=== PATIENT | female | born 1985 | race Caucasian/White ===

== ENCOUNTER → 2018-01-08 18:08 | Outpatient (REF) | payer OTHER, SELFPAY | LOC: LAB 18:08 | PROVIDERS: Visit Provider Otolaryngology | DX: J32.9 Chronic sinusitis, unspecified (principal); R51 Headache | CPT/HCPCS: 87070 ==

== ENCOUNTER → 2018-07-20 15:04 | Outpatient (REF) | payer OTHER, SELFPAY | LOC: LAB 15:04 | PROVIDERS: Visit Provider Otolaryngology | DX: J32.0 Chronic maxillary sinusitis (principal) | CPT/HCPCS: 87070; 87077; 87147; 87186 ==

== ENCOUNTER → 2018-08-01 13:33 | Outpatient (REF) | payer OTHER, SELFPAY | LOC: LAB 13:33 | PROVIDERS: Visit Provider Otolaryngology | DX: J32.0 Chronic maxillary sinusitis (principal) | CPT/HCPCS: 87070 ==

== ENCOUNTER → 2019-01-20 17:34 | Outpatient (CLI) | payer OTHER, SELFPAY ==
--- NOTE | 2019-01-20 | DI.MRI.S_ITS ---
PROCEDURE: MR CERVICAL SPINE WO CON INDICATIONS: Radiculopathy, cervical region TECHNIQUE: Noncontrast sagittal T1 spin echo and T2 fast spin echo, sagittal STIR, foraminal oblique sagittal T2 fast spin echo, and axial gradient echo or T2 fast spin echo through the cervical spine. COMPARISON: None. FINDINGS: Image quality: Excellent. Alignment and Curvature: There is straightening of the normal cervical lordosis. This Bone Marrow: Marrow demonstrates normal overall signal. Spinal Cord: Visualized spinal cord has normal size and signal. No cerebellar tonsillar herniation. Paraspinous Soft Tissues: No paravertebral masses. Prevertebral soft tissues are normal in thickness. C2-C3: Normal appearance. C3-C4: The disc height and disc signal are relatively well-preserved. A mild degree of generalized disc osteophyte complex is seen. No significant neural foraminal narrowing is seen. Mild central canal narrowing is seen, with minimal central canal narrowing. C4-C5: The disc height and disc signal are relatively well-preserved. A mild degree of generalized disc osteophyte complex is seen. No significant neural foraminal narrowing can be seen. Mild central canal narrowing is seen, with mild mass effect upon the ventral spinal cord. C5-C6: The disc height and disc signal are well-preserved. Mild disc bulge is seen, with mild central disc protrusion. No significant neural foraminal narrowing is seen at this level. Mild central canal narrowing is seen, with associated mild mass effect upon the ventral spinal cord. C6-C7: No significant abnormality is seen. C7-T1: Normal appearance. IMPRESSION: Straightening of the normal cervical lordosis is seen, which is commonly observed in patients with muscular spasm. Multiple levels of minimal to mild central canal narrowing can be seen. Dictated by: Abdoulaye Bateman M.D. on 01/20/2019 at 17:13 Approved by: Abdoulaye Bateman M.D. on 01/20/2019 at 17:16
== END ==
PROVIDERS: Visit Provider Physical Medicine & Rehabilitation Pain Medicine
DX: M54.12 Radiculopathy, cervical region (principal); M48.02 Spinal stenosis, cervical region
CPT/HCPCS: 72141

== ENCOUNTER 2019-12-17 14:43 | Emergency (ER) | payer OTHER, SELFPAY ==
[2019-12-17 15:00] VITALS: BP 124/68; PULSE 81; RESP 16; TEMP 36.9; O2SAT 98; BMI 25.7
--- NOTE | 2019-12-17 15:26 | ED_ITS ---
HPI - Extremity Injury (Upper) <VALERIA Green - Last Filed: 12/17/19 21:18> General Chief Complaint: Extremity Injury, Upper Stated Complaint: right shoulder pain Time Seen by Provider: 12/17/19 14:49 Source: patient Mode of arrival: Ambulatory Limitations: no limitations History of Present Illness HPI narrative: This is a 34 year female, nonsmoker, who has history of chronic bursitis and is waiting for right shoulder surgery by Dr. Sylvester next week Sunday on 12/26/19 presents to ED with acute pain on her right anterior shoulder, dominant hand, radiating down to her fingers and up to her right-sided neck. Patient denies fever, chills but had nausea from severe pain and vomited once today. Patient had a steroid injection about 6 weeks ago with improved pain for about 2 and half weeks. Patient had tried oral steroids but reports was not as effective as steroid injection. Patient denies known injury or trauma to right arm. 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 Patient reports current pain is about 9/10 and is usually able to function at 7/10 pain. Reports last MRI test was in August 2019 and since then pain has been getting worse. Patient reports decrease sensation in right hand long, ring, and little finger. Patient denies increasing weakness on affected arm. Patient had tried methocarbamol for pain management. Patient reports Tylenol and Motrin has not been really working for pain and denies using these medications recently. Related Data Home Medications Medication Instructions Recorded Confirmed cyclobenzaprine mg 12/17/19 fluoxetine mg 12/17/19 norethindrone-e.estradiol-iron tab 12/17/19 [06/02 (28)] Previous Rx's Medication Instructions Recorded hydrocodone-acetaminophen [[place]] 1 tab PO TID PRN #10 tab 12/17/19 meloxicam 7.5 mg PO DAILY PRN #10 tab 12/17/19 ondansetron 4 mg PO Q8H PRN 4 Days #10 tab 12/17/19 prednisone 40 mg PO DAILY 4 Days #8 tab 12/17/19 Allergies Allergy/AdvReac Type Severity Reaction Status Date / Time No Known Drug Allergies Allergy Verified 12/17/19 14:58 Review of Systems <VALERIA Green - Last Filed: 12/17/19 21:18> Review of Systems Narrative: General: Denies fever, chills, fatigue, malaise, sweats. HEENT: Denies sinus pain, ear pain, sore throat, difficulty swallowing, dizziness. Respiratory: Denies dyspnea, cough, wheezing, hemoptysis, sputum. Cardiovascular: Denies chest pain, palpitations, orthopnea, edema. Gastrointestinal: Denies nausea, vomiting, abdominal pain, diarrhea, constipation, melena. : Denies dysuria, frequency, incontinence, hematuria, urinary retention. Musculoskeletal: HPI Skin: Denies rash, skin lesions, or other. Neurologic: Denies weakness, headache, numbness, change in speech, confusion, seizures, incoordination. Psychiatric: No concerning psychosocial issues. 12-point review of systems is negative except for those stated above. Patient History <VALERIA Green - Last Filed: 12/17/19 21:18> Medical History Bursitis of right shoulder (Acute) Surgical History H/O sinus surgery (Acute) Social History Smoking Status: Never smoker Smoking Status: Never smoker alcohol intake frequency: a few times a month Substance Use Type: does not use Exam <VALERIA Green - Last Filed: 12/17/19 21:18> Narrative Exam Narrative: General appearance: well developed, well nourished, in no acute distress. Head: normocephalic, atraumatic, no scalp lesions, non-tender. ENT: Hearing grossly intact. Nose without bleeding, purulent discharge. Airway patent. Neck/Thyroid: neck supple, full range of motion, no visible masses or meningeal signs. No JVD, non-tender without lymphadenopathy. Skin: no suspicious rashes, lesions over visible areas. Warm and dry and appropriate color for ethnicity. Heart: no clubbing, no cyanosis, no edema. S1 and S2 normal. RRR w/o murmurs, clicks, or bruits. Lungs: Breathing even and unlabored. No stridor. No accessory muscles used. Able to speak in full sentences. Chest: normal shape and expansion. Abdomen: non-obese, non-distended. Neurologic: alert and oriented. Cognitive exam, [employer] and PNS grossly intact on informal exam. Psych: good eye contact, normal affect. Initial Vital Signs Initial Vital Signs: Vital Signs Temperature 98.5 F 12/17/19 15:00 Pulse Rate 81 12/17/19 15:00 Respiratory Rate 16 12/17/19 15:00 Blood Pressure 124/68 12/17/19 15:00 Pulse Oximetry 98 12/17/19 15:00 Extrem General: normal to inspection Right upper extremity: shoulder/upper arm Details: normal to inspection, tenderness (Radiating down to her hand and right-sided neck), normal ROM and other (No erythema); no swelling, no ecchymosis, no deformity and no unusual warmth and hand Details: normal to inspection, normal capillary refill, neurosensory exam abnormal Details: ulnar nerve sensory function normal, tendon exam normal and vascular exam Details: radial pulse present and normal capillary refill; no tenderness <Juliet Martin DO - Last Filed: 12/18/19 08:27> Initial Vital Signs Initial Vital Signs: Vital Signs Temperature 98.5 F 12/17/19 15:00 Pulse Rate 81 12/17/19 15:00 Respiratory Rate 16 12/17/19 15:00 Blood Pressure 124/68 12/17/19 15:00 Pulse Oximetry 98 12/17/19 15:00 Scores <VALERIA Green - Last Filed: 12/17/19 21:18> GCS [place] coma scale eye opening: Spontaneous [place] coma scale verbal response: Orientated [place] coma scale motor response: Obey commands [place] coma scale total score: 15 Course <VALERIA Green - Last Filed: 12/17/19 21:18> Orders Ordered: Discontinued Medications Hydrocodone Bitart/Acetaminophen ([place] 5/325) 1 tab PO NOW ONE Stop: 12/17/19 15:25 Last Admin: 12/17/19 15:33 Dose: 1 tab Documented by: JUAN LUIS Ketorolac Tromethamine (Toradol) 30 mg IM NOW ONE Stop: 12/17/19 15:25 Last Admin: 12/17/19 15:32 Dose: 30 mg Documented by: JUAN LUIS Ondansetron HCl (Zofran Odt) 4 mg SL NOW ONE Stop: 12/17/19 15:25 Last Admin: 12/17/19 15:32 Dose: 4 mg Documented by: JUAN LUIS Pantoprazole Sodium (Protonix) 20 mg PO NOW ONE Stop: 12/17/19 15:25 Last Admin: 12/17/19 15:32 Dose: 20 mg Documented by: JUAN LUIS Prednisone (Deltasone) 40 mg PO NOW ONE Stop: 12/17/19 15:25 Last Admin: 12/17/19 15:32 Dose: 40 mg Documented by: JUAN LUIS Vital Signs Vital signs: Vital Signs - 8 hr 12/17/19 15:00 12/17/19 16:31 Temperature 98.5 F Pulse Rate 81 87 Respiratory Rate 16 16 Blood Pressure 124/68 121/71 Pulse Oximetry 98 99 <Juliet Martin DO - Last Filed: 12/18/19 08:27> Orders Ordered: Discontinued Medications Hydrocodone Bitart/Acetaminophen ([place] 5/325) 1 tab PO NOW ONE Stop: 12/17/19 15:25 Last Admin: 12/17/19 15:33 Dose: 1 tab Documented by: JUAN LUIS Ketorolac Tromethamine (Toradol) 30 mg IM NOW ONE Stop: 12/17/19 15:25 Last Admin: 12/17/19 15:32 Dose: 30 mg Documented by: JUAN LUIS Ondansetron HCl (Zofran Odt) 4 mg SL NOW ONE Stop: 12/17/19 15:25 Last Admin: 12/17/19 15:32 Dose: 4 mg Documented by: JUAN LUIS Pantoprazole Sodium (Protonix) 20 mg PO NOW ONE Stop: 12/17/19 15:25 Last Admin: 12/17/19 15:32 Dose: 20 mg Documented by: JUAN LUIS Prednisone (Deltasone) 40 mg PO NOW ONE Stop: 12/17/19 15:25 Last Admin: 12/17/19 15:32 Dose: 40 mg Documented by: JUAN LUIS Vital Signs Vital signs: Vital Signs - 8 hr 12/17/19 15:00 12/17/19 16:31 Temperature 98.5 F Pulse Rate 81 87 Respiratory Rate 16 16 Blood Pressure 124/68 121/71 Pulse Oximetry 98 99 MDM - Extremity Injury (Upper) <VALERIA Green - Last Filed: 12/17/19 21:18> Differential Diagnosis Differential diagnosis: Likely other (Acute on Chronic right shoulder pain) Medical Records Attestation: I reviewed the patient's medical records. [facility] Narrative Medical decision making narrative: This is a 34 year female who presents to ED with severe acute right shoulder pain who has chronic pain which radiating down to fingers and to right-sided neck. Patient denies injuring on affected shoulder recently. She is waiting for right shoulder surgery on 12/26/19 next week Sunday by Dr. Sylvester likely from chronic bursitis. Patient reports had an episode of nausea and vomiting from severe pain but no fever or chills. Physical exam is not consistent for infection. Patient was managed acute pain with Zofran, [place], steroids, and IM Toradol with Omeprazole which improved pain. Patient discharged to home with short course of meloxicam, Zofran, prednisone for acute pain and to consult Dr. Holder is a office if could take these medications without adverse effect. We discussed narcotic pain medication, NSAIDs, steroid medication precautions and patient verbalized understanding and agreement with the treatment plan. Discharge Plan Departure Patient Disposition: Home Clinical Impression: Pain in right shoulder Qualifiers: Chronicity: chronic Qualified Code(s): M25.511 - Pain in right shoulder Discharge Date/Time: 12/17/19 16:33 Instructions: DI for Shoulder Sprain Activity Restrictions/Additional Instructions: You have been diagnosed with [acute on chronic right shoulder pain. You were treated with Toradol IM injection, [place], prednisone, omeprazole, zofran in ED. ]. What to do: *Take your medications as directed. New prescriptions have been transmitted to [facility] in [place]. Meloxicam daily as needed for pain which is NSAIDS as needed (stop this Sunday as Dr. Sylvester's instruction). [place] which is narcotic pain medication for severe pain as needed. He can cause drowsiness so please take precaution such as not driving, drinking alcohol, or operating heavy equipments. Can cause constipation as well so please take precautions. Own then steroid as needed for nausea. Prednisone, steroids, for next 4 days starting tomorrow. He can not elevated blood sugar, GI irritation/bleed so please take it with [id number] omeprazole if you are concurrently taking with NSAIDS. Please verify with Dr. Sylvester his office if you can take this before surgery. *Follow up with your primary care provider in 2-3 days, call for an appointment. Let them know you were seen in the ED and that we asked you to be seen in follow up. *Return to ED if you have any new, worsening, or concerning symptoms, such as [worsening pain, fever, increasing redness/warmth/weakness/numbness on affected site, chest pain, breathing difficulty, unable to tolerate fluids, or any acute concerns]. Prescriptions: New hydrocodone-acetaminophen [[place]] 5-325 mg tablet 1 tab PO TID PRN (Reason: pain) Qty: 10 RF: 0 ondansetron 4 mg tablet,disintegrating 4 mg PO Q8H PRN (Reason: nausea and vomiting) 4 Days Qty: 10 RF: 0 meloxicam 7.5 mg tablet 7.5 mg PO DAILY PRN (Reason: pain) Qty: 10 RF: 0 prednisone 20 mg tablet 40 mg PO DAILY 4 Days Qty: 8 RF: 0 No Action cyclobenzaprine 10 mg tablet RF: 0 fluoxetine 10 mg capsule RF: 0 norethindrone-e.estradiol-iron [06/02 (28)] 1 mg-20 mcg (21)/75 mg (7) tablet RF: 0 Referrals: [facility] [Outside] Will Sylvester MD [Physician] - <Juliet Martin DO - Last Filed: 12/18/19 08:27> Cosign ED Attending Jenniferature Attestation: I was immediately available in the department for consultation. Documentation has been reviewed. I agree with assessment and plan.
[2019-12-17] MEDS: KETOROLAC 60 MG/2 ML VIAL 30 MG IM (15:32)
[2019-12-17] MEDS: PANTOPRAZOLE 20 MG TABLET PO (15:32)
[2019-12-17] MEDS: ONDANSETRON 4 MG ODT SL (15:32)
[2019-12-17] MEDS: predniSONE 20 MG TABLET 40 MG PO (15:32)
[2019-12-17] MEDS: HYDROCODONE/ACET 5/325 TABLET 1 TAB PO (15:33)
[2019-12-17 16:31] VITALS: BP 121/71; PULSE 87; RESP 16; O2SAT 99
== END 2019-12-17 16:33 | disposition home or self-care (01) ==
PROVIDERS: Emergency Provider Nurse Practitioner Family
DX: M25.511 Pain in right shoulder (principal); M54.2 Cervicalgia
CPT/HCPCS: 96372; 99283; J1885

== ENCOUNTER → 2019-12-23 08:35 | Outpatient (CLI) | payer OTHER, SELFPAY ==
[2019-12-24 06:42] LABS: COVID19 Sendout Not Detected (Not Detect)
== END ==
PROVIDERS: Visit Provider Physician Assistant
DX: Z11.59 Encounter for screening for other viral diseases (principal)
CPT/HCPCS: 87635

== ENCOUNTER 2019-12-26 09:09 | Day surgery (SDC) | payer OTHER, SELFPAY ==
[2019-12-22 08:49] VITALS: BMI 25.4
[2019-12-26] VITALS (18 sets, daily range): BP systolic 108–125; BP diastolic 65–80; PULSE 72–98; RESP 8–20; TEMP 36.4–36.9; O2SAT 92–98; BMI 25.8
[2019-12-26] MEDS: LACTATED RINGERS 1,000 ML 42 ML IV ×2 (09:58→11:46)
--- NOTE | 2019-12-26 10:00 | PM.PREOP ---
Pre-operative Note COVID-19 COVID-19 status: Negative Result date/Date tested (Pos, Neg/Pending): 12/23/19 Interval Note History & Physical reviewed/Exam performed by Physician: Yes Changes to H&P: No
[2019-12-26] MEDS: CEFAZOLIN 2 GM/100 ML FROZ.PIGGY IV (10:47)
[2019-12-26] MEDS: LIDOCAINE 1% W/EPI 20 ML INJ (11:07)
--- NOTE | 2019-12-26 11:17 | SUR.OPER ---
Beach chair with Thomas/Jonatan shoulder positioner. Lower body on padded OR bed. Head in foam padded head cradle, secured with straps. Non-operative arm secured <90 degrees abduction. Pillow under knees. Safety belt at thigh. Cloth tape over blanket over lower legs.
[2019-12-26] MEDS: BUPIVACAINE 0.5% W/ EPI (PF) 30 ML VIAL INJ (11:24)
[2019-12-26] MEDS: SODIUM CHLORIDE IRRIG SOLUTION 3,000 ML, EPINEPHrine 1 MG IRR (11:25)
--- NOTE | 2019-12-26 12:12 | P.OP_ITS ---
Operative Date/Time/Diagnoses Date of procedure: 12/26/19 Time of procedure: 11:00 Pre-op diagnosis: Right shoulder impingement AC joint arthritis Post-op diagnosis: same Procedure & Clinicians Procedure: Right shoulder arthroscopic debridement with subacromial decompression and distal clavicle excision Same procedure as scheduled: Yes Indications: Right shoulder impingement and AC joint arthritis Surgeon: Will Sylvester Director Of Market Intelligence: Jayna Thomas Anesthesia Type: General Operative Notes Findings: No sign of any significant arthritic changes to the glenohumeral joint. No sign of any labral pathology. Patient had a sub foraminal variant. No sign of any proximal biceps pathology. No tearing into the proximal bicipital anchor. Some articular partial tearing to the anterior aspect of the supraspinatus but less than 50%. No sign of any significant bursal sided tears. Impingement lesion and the acromial arch and a type 2 acromion. As well as arthritic changes and inferior osteophytes to the distal clavicle. Closure Type: primary Specimen(s): none sent Estimated Blood Loss (mL): 5 Blood products transfused: none Procedure in detail: On date of service, Patient was met in the holding area. The operative site was signed and witnessed by the OR staff. The surgeries once again discussed with the patient and any remaining questions they had were answered fully. Patient was taken back to the operating theater and placed on the operating table in a supine position. Great care was taken to ensure that all bony prominences were properly padded. Patient was then placed into the beach chair position. The head and neck were properly positioned and secured. A timeout was performed verifying patient's name, procedure, and the operative site. The upper extremity was then prepped and draped in the normal sterile fashion. Previously, the bony anatomy and portal sites were marked out as well as injected with Marcaine with epinephrine. An 11 blade was used to make an incision in the posterior aspect of the shoulder. The camera was placed, and a diagnostic shoulder scope was performed. Findings listed above. Next under direct visualization, a anterior portal was made. Next the camera was placed into the subacromial space. A lateral portal was obtained under direct visualization. A combination of the shaver and vapor wand, a debridement of the inflamed tissue as well as inflamed bursa was performed. The lateral gutter was also cleaned out. This gave us good visualization of the bursal aspect of the rotator cuff as well as the acromial arch. There was an obvious impingement lesion in the acromial arch. Next we turned our attention to the subacromial decompression. Next, a mechanical rasp was then used to do a subacromial decompression. This allowed us to convert the acromion to a type I acromial. This also allowed us to shave down the bony lesion in the acromial space. The rasp was placed into the lateral portal as well as the anterior portal in order to do a complete subacromial decompression. We next turned our attention to the distal clavicle. Using the shaver in the vapor wand we were able to clean out all the soft tissue around the distal clavicle as well as into the a.c. joint. This gave us good visualization of the arthritic changes to the distal clavicle as well as good of the a.c. joint allowing us to assess our distal clavicle excision. Of the inferior osteophytes coming off the distal clavicle. Using the mechanical rasp in the anterior portal, we were able to remove the inferior osteophytes as well as do a distal clavicle excision. The camera was then placed into the anterior portal which gave us a direct visualization of the a.c. joint allowing us to assess the distal clavicle excision. We then turned our attention to the rotator cuff tear. There was no signs of any bursal sided tears. The shoulder was then taken through range of motion and there was no sign of any additional impingement. Next, the suprascapular nerve was blocked. Patient's shoulder was then cleaned dried and dressed and patient was taken to the PACU in stable condition. Complications: none Post-operative Condition: stable Disposition: PACU Plan for aftercare: Patient will follow our postoperative protocol for subacromial decompression
[2019-12-26] MEDS: ONDANSETRON 4 MG/2 ML INJ IV (12:31)
[2019-12-26] MEDS: hydrOXYzine 50 MG/ML INJ 25 MG IM (12:31)
[2019-12-26] MEDS: fentaNYL 100 MCG/2 ML INJ IV ×2 (12:31→13:14)
[2019-12-26] MEDS: HYDROMORPHONE 2 MG INJ IV ×2 (12:48→13:16)
--- NOTE | 2019-12-26 13:30 | SUR.PHASEI ---
Patient states she is getting minimal relief but denies nausea. Anesthesiology to bedside to assess. Plans to perform bedside nerve block for pain relief.
--- NOTE | 2019-12-26 14:04 | PM.PROC.1 ---
Procedures Date/Time Date of procedure: 12/26/19 Time of procedure: 13:48 Nerve Block Time out performed: Yes Local anesthetic used: bupivacaine 0.5% (10 ml 0.5% Bupivacaine and 5 ml 2% Lidocaine with epi) Location of anesthetic used: Right Interscalene/Brachial Plexus Amount of anesthesia used (mL): 15 Nerve blocks: brachial plexus (right Interscalene) Patient tolerated procedure: well Complications: none Additional comments: Patient post op in PACU. Continued discomfort of right shoulder after several doses of narcotics. The block procedure was discussed with patient preoperatively and although she opted not to have it before surgery, she did sign the consent for it in case post op pain was an issue. Patient in beach chair position with routine monitors. Neck exposed and sterilized using chloroprep; sterile drapes placed. Ultrasound visualization and nerve stimulator used. 1% lido wheal with 25g. 22g 50mm nerve stimulator needle passed. Positive twitch to 6mAmp. Negative aspiration and test dose. Total volume of 15 ml given: 10 ml 0.5% Bupivacaine and 5 ml Lidocaine 2% with epi given. No IV sedation required for procedure and patient tolerated well. Of note - Patient had local infiltration of surgical site at the time of surgery with a total of 20 ml of Bupivacaine 0.5% with epi was used.
--- NOTE | 2019-12-26 14:13 | SUR.PHASEI ---
Block start time 1348[] . Monitoring initiated and maintained throughout procedure. Oxygen and medications given per anesthesiologist instructions. Patient remained stable throughout procedure, no adverse reactions noted. Block end time [1358. late entry 1348: patient getting minimal relief from IV narcotic pain medication. Nerve block done by Dr Saniya Marks in PACU. Tolerated well with no complications.
--- NOTE | 2019-12-26 15:24 | SUR.PHASEII ---
Discharged patient home in stable condition with and prescriptions. VSS. Denies SOB. Patient swallows without difficulty.
== END 2019-12-26 15:15 | disposition home or self-care (01) ==
PROVIDERS: PCP Family Medicine; Referring Provider Family Medicine; Visit Provider Orthopaedic Surgery
PROC: (CPT 29805; principal; 2019-12-26 10:45)
DX: M75.41 Impingement syndrome of right shoulder (principal); M19.011 Primary osteoarthritis, right shoulder
CPT/HCPCS: 29824; 29826; J0171; J0690; J1100; J1170; J2250; J2405; J2704; J3010; J3410

== ENCOUNTER 2020-03-13 06:26 | Emergency (ER) | payer OTHER, SELFPAY ==
[2020-03-13 06:34] VITALS: BP 123/73; PULSE 88; RESP 16; TEMP 36.9; O2SAT 97
--- NOTE | 2020-03-13 06:39 | ED.GENADULT ---
HPI - General Adult General Chief complaint: Extremity Injury, Upper Stated complaint: Right neck and shoulder pain Time Seen by Provider: 03/13/20 06:28 Source: patient Mode of arrival: Ambulatory Limitations: no limitations History of Present Illness HPI narrative: 34-year-old female here for evaluation of right shoulder and upper back discomfort. She has had issues in the past and has even had surgery on her right shoulder with debridement of tissue. Please see the operative note from earlier this year for more detailed information regarding the surgery. She states that over the past couple days she has been using her shoulder more and packing and moving boxes. She does see physical therapy 2 times a week and did go yesterday. She did tell them yesterday physical therapy that she was having discomfort in right shoulder. She has medications at home to include muscle relaxers and anti-inflammatories. She denied any new specific trauma and not fallen or shoulder. No fevers. Related Data Home Medications Medication Instructions Recorded Confirmed fluoxetine 10 mg PO DAILY 12/17/19 12/26/19 norethindrone-e.estradiol-iron 1 tab PO DAILY 12/17/19 12/26/19 [06/02 (28)] acetaminophen 1,000 mg PO Q6H PRN 12/26/19 12/26/19 Previous Rx's Medication Instructions Recorded meloxicam 7.5 mg PO DAILY PRN #10 tab 12/17/19 hydroxyzine pamoate [Vistaril] 25 mg PO TID-QID PRN #60 cap 12/26/19 oxycodone-acetaminophen [Percocet] 2 tab PO Q4-6H PRN #60 tab 12/26/19 Allergies Allergy/AdvReac Type Severity Reaction Status Date / Time No Known Drug Allergies Allergy Verified 03/13/20 06:41 Review of Systems Constitutional Constitutional: Denies fever(s) Cardiovascular Cardiovascular: Denies dyspnea Respiratory Respiratory: Denies dyspnea Musculoskeletal Musculoskeletal: Denies tingling Comments: Right shoulder pain Integumentary/Breasts Skin/Breast: Denies rash Neurologic Neurologic: Denies tingling Patient History Medical History (Updated 03/13/20 @ 06:44 by Keith Wong DO) Anxiety (Acute) Bursitis of right shoulder (Acute) Headache, migraine (Acute) Impingement syndrome of right shoulder (Acute) Neck pain (Acute) UTI (urinary tract infection) (Acute) Surgical History (Updated 12/22/19 @ 08:53 by Saniya Buchanan RN) H/O sinus surgery (Acute) Hx of laparoscopy (Acute) Social History household members: spouse Smoking Status: Former smoker alcohol intake: current Smoking Status: Former smoker alcohol intake frequency: a few times a month Substance Use Type: does not use Exam Initial Vital Signs Initial Vital Signs: Vital Signs Temperature 98.4 F 03/13/20 06:34 Pulse Rate 88 03/13/20 06:34 Respiratory Rate 16 03/13/20 06:34 Blood Pressure 123/73 03/13/20 06:34 Pulse Oximetry 97 03/13/20 06:34 Const General: cooperative, healthy appearing and comfortable Limitations: mental status not altered HENMT Head: normal to inspection and normocephalic Resp Effort & Inspection: normal respiratory effort Skin Lesions: no lesions Rashes: no rashes Extrem Other: Patient does have fullness of the right trapezius muscle compared to the left. Tender to palpation over the anterior portion of her shoulder. Course Vital Signs Vital signs: Vital Signs - 8 hr 03/13/20 06:34 Temperature 98.4 F Pulse Rate 88 Respiratory Rate 16 Blood Pressure 123/73 Pulse Oximetry 97 Medical Decision Making [facility] Narrative Medical decision making narrative: Patient has known shoulder issues and has had shoulder surgery in the past. She has muscle relaxers and anti-inflammatory medication at home. There is no indication for radiologic studies here in the ER has I have low suspicion for any fractures. She was given a shot of Toradol which she states has helped her in the past. I feel that no further workup is needed in the emergency department as the increase in discomfort is most likely secondary to the increasing use over the past couple days. I do suspect that her symptoms will improve with time and rest and the modalities that she already has at home. She was given return precautions. She expressed understanding and agreement. Discharge Plan Departure Patient Disposition: Home Clinical Impression: Chronic pain in right shoulder Instructions: How To Perform RICE (Rest, Ice, Compress, Elevate) Activity Restrictions/Additional Instructions: The increase in discomfort in your right shoulder is most likely to the increase in use over the past couple days. The medications you have at home to include the methocarbamol and the Mobic in the Tylenol are the medications that will most likely help your discomfort. It is also important that you rest her shoulder over the next couple days. You can also talk with physical therapy at your appointment next week. I suspect that your shoulder discomfort will improve with time and rest. Prescriptions: No Action acetaminophen 500 mg Tablet 1,000 mg PO Q6H PRN (Reason: Pain (Scale Score 1-3)) RF: 0 oxycodone-acetaminophen [Percocet] 5-325 mg tablet 2 tab PO Q4-6H PRN (Reason: pain) Qty: 60 RF: 0 hydroxyzine pamoate [Vistaril] 25 mg capsule 25 mg PO TID-QID PRN (Reason: spasms) Qty: 60 RF: 0 fluoxetine 10 mg capsule 10 mg PO DAILY RF: 0 norethindrone-e.estradiol-iron [Junel FE 06/02 (28)] 1 mg-20 mcg (21)/75 mg (7) tablet 1 tab PO DAILY RF: 0 meloxicam 7.5 mg tablet 7.5 mg PO DAILY PRN (Reason: pain) Qty: 10 RF: 0 Referrals: Mira Austin DO [Primary Care Provider] -
[2020-03-13] MEDS: KETOROLAC 60 MG/2 ML VIAL 30 MG IM (06:45)
== END 2020-03-13 06:50 | disposition home or self-care (01) ==
PROVIDERS: Emergency Provider Emergency Medicine; PCP Family Medicine
DX: M25.511 Pain in right shoulder (principal); M54.6 Pain in thoracic spine
CPT/HCPCS: 96372; 99283; J1885